=== PATIENT | male | born 1980 | race Hispanic/Latino ===

== ENCOUNTER 2022-08-19 11:23 | Inpatient (IN) | payer SELFPAY ==
[~2022-08-19 11:23] MED LIST: Iopamidol-370 76% 500 ML 1 ML ONE
[2022-08-19 12:13] LABS: Hemoglobin 10.3 g/dL (14.0-18.0); Mean Corpuscular HGB CONC 31.6 g/dL (32.0-36.0); Mean Corpuscular Hemoglobin 39.8 pg (27.0-31.0); Mean Platelet Volume 7.3 fL (7.4-10.4); Platelet Count 145 10x3/uL (130-400); RBC Distribution Width 14.1 % (11.5-14.5); Red Blood Cell (RBC) Count 2.59 mill/uL (4.70-6.10)
[2022-08-19 12:23] LABS: INR-International Normal Ratio 2.4; Prothrombin Time 27.2 sec (12.0-14.7)
[2022-08-19 12:31] LABS: ALT (SGPT) 50 U/L (8-55); AST (SGOT) 87 U/L (5-34); Albumin 2.2 g/dL (3.5-5.0); Alcohol 72 mg/dL (Less than 10); Alkaline Phosphatase 124 U/L (40-110); Anion Gap 12 mmol/L (10-20); BUN (Urea Nitrogen) 7 mg/dL (8.9-20.6); Bilirubin, Total 10.9 mg/dL (0.2-1.2); Calc. Creatinine Clearance 0 mL/min (70-130); Calcium 7.7 mg/dL (7.8-10.44); Carbon Dioxide 19 mmol/L (22-29); Chloride 99 mmol/L (98-107); Estimated GFR 128; Globulin 5.1 g/dL (2.4-3.5); Glucose 111 mg/dL (70-105); Lipase 141 U/L (8-78); Potassium 3.1 mmol/L (3.5-5.1); Protein, Total 7.3 g/dL (6.0-8.3); Sodium 127 mmol/L (136-145)
[2022-08-19 12:37] LABS: Band 1 % (5-11); Lymphocytes 15 % (21-51); MDiff Complete? YES; Macrocytosis SLIGHT = 6-15 cells (100X) (0-5/hpf); Monocytes 5 % (0-10); Neutrophil 79 % (42-75); Platelet Morphology Comment Appears Adequate; Polychromasia SLIGHT = 2-3 cells (100X) (0-2/hpf)
[2022-08-19] MEDS ORDERED: Multivitamins, Adult 10 ML, Folic Acid 1 MG, Thiamine HCl 100 MG in Dextrose 5 %-0.45 %... IV SCH (13:30)
[2022-08-19] MEDS ORDERED: Lorazepam 2 MG/ML VIAL IM PRN (13:32)
[2022-08-19] MEDS ORDERED: Lorazepam 1 MG TAB PO PRN (13:32)
[2022-08-19] MEDS ORDERED: Ondansetron ODT 4 MG TAB PO PRN (13:34)
[2022-08-19] MEDS ORDERED: Ondansetron PF 4 MG/2 ML Vial IVP PRN (13:34)
[2022-08-19] MEDS ORDERED: Electrolyte Replacement Protocol 1 EACH FS SCH (13:45)
[2022-08-19 13:52] LABS: Phosphorus 2.7 mg/dL (2.3-4.7)
[2022-08-19] MEDS ORDERED: Albumin 25% 25 GM/100 ML BOT IVPB SCH (13:58)
[2022-08-19] MEDS ORDERED: Electrolyte Replacement Protocol FS PRN (14:00)
[2022-08-19 14:07] LABS: Magnesium 1.9 mg/dL (1.6-2.6)
[2022-08-19] MEDS ORDERED: Potassium Chloride 20 MEQ TAB PO SCH (15:00)
[2022-08-19] MEDS ORDERED: Furosemide 40 MG/4 ML VIAL SLOW IVP SCH (15:00)
[2022-08-19 15:47] VITALS: BMI 25.8
[2022-08-19] MEDS ORDERED: traMADol HCl 50 MG TAB PO PRN (16:19)
[2022-08-19] MEDS: Lorazepam 1 MG TAB PO SCH ×2 (17:33→23:46)
[2022-08-19] MEDS: Nicotine 14 MG PATCH TD SCH (17:33)
[2022-08-19 17:56] LABS: Amphetamine Not Detected (NotDetected); Barbiturates Screen Not Detected (NotDetected); Benzodiazepine Screen Not Detected (NotDetected); Cocaine Metabolite Screen Not Detected (NotDetected); Methadone Not Detected (NotDetected); Methamphetamine Not Detected (NotDetected); Opiate Screen Not Detected (NotDetected); Oxycodone Screen Not Detected (NotDetected); Phencyclidine (PCP) Not Detected (NotDetected); THC/Cannabinoid Screen Not Detected (NotDetected); Tricyclic Screen Not Detected (NotDetected)
[2022-08-19] MEDS ORDERED: Metoprolol Tartrate 5 MG/5 ML VIAL IVP ONE (18:29)
[2022-08-19] MEDS ORDERED: Atenolol 50 MG TAB PO SCH (18:37)
[2022-08-19] MEDS: cefTRIAXone\\ROCEPHIN 2 GM in Sodium Chloride 0.9% 100 ML IVPB SCH (20:29)
[2022-08-19] MEDS ORDERED: Magnesium 2 GM/50 ML(in water) 2 GM in Premix Bag 1 BAG IVPB SCH (21:30)
[2022-08-20] MEDS: Lorazepam 1 MG TAB PO SCH ×2 (05:29→12:44)
[2022-08-20 06:26] LABS: Hemoglobin 10.6 g/dL (14.0-18.0); Mean Corpuscular HGB CONC 32.2 g/dL (32.0-36.0); Mean Corpuscular Hemoglobin 40.1 pg (27.0-31.0); Mean Platelet Volume 8.1 fL (7.4-10.4); Platelet Count 88 10x3/uL (130-400); Red Blood Cell (RBC) Count 2.63 mill/uL (4.70-6.10); White Blood Cell (WBC) Count 8.9 10x3/uL (4.8-10.8)
[2022-08-20 06:36] LABS: ALT (SGPT) 51 U/L (8-55); AST (SGOT) 88 U/L (5-34); Albumin 2.3 g/dL (3.5-5.0); Alkaline Phosphatase 115 U/L (40-110); Anion Gap 8 mmol/L (10-20); BUN (Urea Nitrogen) 6 mg/dL (8.9-20.6); Bilirubin, Total 10.3 mg/dL (0.2-1.2); Calc. Creatinine Clearance 195 mL/min (70-130); Calcium 7.8 mg/dL (7.8-10.44); Carbon Dioxide 23 mmol/L (22-29); Chloride 98 mmol/L (98-107); Estimated GFR 127; Glucose 81 mg/dL (70-105); Protein, Total 7.3 g/dL (6.0-8.3); Sodium 126 mmol/L (136-145)
[2022-08-20 06:53] LABS: Ferritin 204.06 ng/mL (22-322)
[2022-08-20 07:07] LABS: HBCM Index 0.75 S/CO (0-0.79); HBSAg Index 0.33 S/CO (0-0.99); Hep A IgM AB Non-Reactive (NonReactive); Hep B Surf Ag Non-Reactive S/CO (NonReactive); Hep C IgG Ab Non-Reactive (NonReactive); Hep C Index 0.16 S/CO (0-0.79); Hepatitis B Core IgM Abs Non-Reactive (NonReactive)
[2022-08-20 07:12] LABS: Hep B Surf AB Reactive (NonReactive)
[2022-08-20 07:54] LABS: Band 1 % (5-11); Lymphocytes 18 % (21-51); MDiff Complete? YES; Monocytes 5 % (0-10); Neutrophil 76 % (42-75); Platelet Morphology Comment Appears Decreased; Polychromasia SLIGHT = 2-3 cells (100X) (0-2/hpf)
[2022-08-20] MEDS ORDERED: Magnesium 2 GM/50 ML(in water) 2 GM in Premix Bag 1 BAG IVPB SCH (08:00)
[2022-08-20] MEDS: Potassium Chloride 20 MEQ in Premix Bag 1 BAG IVPB SCH ×4 (08:49→22:00)
[2022-08-20] MEDS: Folic Acid 1 MG TAB PO SCH (08:50)
[2022-08-20] MEDS: Cyanocobalamin (Vitamin B-12) 1,000 MCG TAB PO SCH (08:50)
[2022-08-20] MEDS: Multivit, Therapeutic 1 TAB PO SCH (08:50)
[2022-08-20] MEDS: Atenolol 50 MG TAB PO SCH (08:50)
[2022-08-20] MEDS ORDERED: Furosemide 40 MG/4 ML VIAL SLOW IVP SCH (09:00)
[2022-08-20 09:04] LABS: INR-International Normal Ratio 2.4; Prothrombin Time 27.4 sec (12.0-14.7)
[2022-08-20 09:05] LABS: PTT 50.2 sec (22.9-36.1)
[2022-08-20 14:03] LABS: ALT (SGPT) 51 U/L (8-55); AST (SGOT) 92 U/L (5-34); Albumin 2.3 g/dL (3.5-5.0); Alkaline Phosphatase 113 U/L (40-110); Anion Gap 11 mmol/L (10-20); BUN (Urea Nitrogen) 7 mg/dL (8.9-20.6); Bilirubin, Total 11.7 mg/dL (0.2-1.2); Calc. Creatinine Clearance 185 mL/min (70-130); Calcium 7.8 mg/dL (7.8-10.44); Carbon Dioxide 21 mmol/L (22-29); Chloride 97 mmol/L (98-107); Estimated GFR 125; Globulin 5.4 g/dL (2.4-3.5); Glucose 77 mg/dL (70-105); Potassium 3.1 mmol/L (3.5-5.1); Protein, Total 7.7 g/dL (6.0-8.3); Sodium 126 mmol/L (136-145)
[2022-08-20] MEDS ORDERED: Potassium Chloride 20 MEQ TAB PO SCH (15:15)
[2022-08-20] MEDS ORDERED: Spironolactone 25 MG TAB PO SCH (15:15)
[2022-08-20] MEDS ORDERED: Potassium Chloride 20 MEQ in Premix Bag 1 BAG IVPB SCH (15:15)
[2022-08-20] MEDS ORDERED: Potassium Bicarbonate/Cit Ac 20 MEQ TAB PO SCH (16:15)
[2022-08-20] MEDS: Nicotine 14 MG PATCH TD SCH (17:21)
[2022-08-20 17:28] LABS: RBC Count-Automated (BF) 2174 /cu.mm; WBC/Nucleated-Auto (BF) 24 /cu.mm
[2022-08-20 17:33] LABS: BF Color Yellow; Body Fluid Source Ascites Body Fluid; Clarity Hazy (Clear); Tube # EDTA
[2022-08-20 19:15] LABS: BF Segmented Neutrophils 22 %; Cell Count Non Hematic 71 %; Lymphocytes 7 %
[2022-08-20] MEDS: cefTRIAXone\\ROCEPHIN 2 GM in Sodium Chloride 0.9% 100 ML IVPB SCH (20:01)
[2022-08-20] MEDS: Furosemide 40 MG/4 ML VIAL SLOW IVP SCH (20:02)
[2022-08-21 06:09] LABS: #Eosinphils 0.1 thou/uL (0.0-0.7); #Lymphocytes 1.9 thou/uL (1.20-3.40); #Monocytes 1.3 thou/uL (0.11-0.59); #Neutrophils 6.7 thou/uL (1.40-6.50); %Basophils 0.1 % (0.0-1.0); %Eosinophils 0.5 % (0.0-10.0); %Lymphocytes 19.4 % (21.0-51.0); %Monocytes 13.2 % (0.0-10.0); %Neutrophils 66.8 % (42.0-75.0); Hemoglobin 11.2 g/dL (14.0-18.0); Mean Corpuscular HGB CONC 31.9 g/dL (32.0-36.0); Mean Corpuscular Hemoglobin 39.7 pg (27.0-31.0); Platelet Count 96 10x3/uL (130-400); Red Blood Cell (RBC) Count 2.82 mill/uL (4.70-6.10)
[2022-08-21 06:34] LABS: ALT (SGPT) 48 U/L (8-55); AST (SGOT) 85 U/L (5-34); Albumin 2.3 g/dL (3.5-5.0); Alkaline Phosphatase 114 U/L (40-110); Anion Gap 13 mmol/L (10-20); BUN (Urea Nitrogen) 11 mg/dL (8.9-20.6); Bilirubin, Total 11.3 mg/dL (0.2-1.2); Calc. Creatinine Clearance 171 mL/min (70-130); Carbon Dioxide 22 mmol/L (22-29); Chloride 97 mmol/L (98-107); Estimated GFR 122; Globulin 5.2 g/dL (2.4-3.5); Glucose 89 mg/dL (70-105); Potassium 3.7 mmol/L (3.5-5.1); Protein, Total 7.5 g/dL (6.0-8.3); Sodium 128 mmol/L (136-145)
[2022-08-21] MEDS ORDERED: Potassium Bicarbonate/Cit Ac 20 MEQ TAB PO SCH (09:00)
[2022-08-21] MEDS: Multivit, Therapeutic 1 TAB PO SCH (09:07)
[2022-08-21] MEDS: Folic Acid 1 MG TAB PO SCH (09:07)
[2022-08-21] MEDS: Spironolactone 25 MG TAB PO SCH (09:07)
[2022-08-21] MEDS: Cyanocobalamin (Vitamin B-12) 1,000 MCG TAB PO SCH (09:07)
[2022-08-21] MEDS: Furosemide 40 MG/4 ML VIAL SLOW IVP SCH ×2 (09:08→20:59)
[2022-08-21] MEDS ORDERED: prednisoLONE 15 MG/5 ML UDCUP PO SCH (11:00)
[2022-08-21] MEDS: Atenolol 50 MG TAB PO SCH (11:44)
[2022-08-21 17:11] LABS: Alpha-1-Antitrypsin 74 mg/dL (101-187)
[2022-08-21] MEDS: Nicotine 14 MG PATCH TD SCH (19:00)
[2022-08-21] MEDS: cefTRIAXone\\ROCEPHIN 2 GM in Sodium Chloride 0.9% 100 ML IVPB SCH (20:58)
[2022-08-22 06:29] LABS: #Lymphocytes 1.5 thou/uL (1.20-3.40); #Monocytes 1.5 thou/uL (0.11-0.59); %Basophils 0.1 % (0.0-1.0); %Eosinophils 0.1 % (0.0-10.0); %Lymphocytes 13.9 % (21.0-51.0); %Monocytes 13.7 % (0.0-10.0); %Neutrophils 72.2 % (42.0-75.0); Hemoglobin 10.2 g/dL (14.0-18.0); Mean Corpuscular HGB CONC 32.2 g/dL (32.0-36.0); Mean Corpuscular Hemoglobin 40.2 pg (27.0-31.0); Mean Platelet Volume 7.8 fL (7.4-10.4); Platelet Count 116 10x3/uL (130-400); RBC Distribution Width 13.9 % (11.5-14.5); Red Blood Cell (RBC) Count 2.54 mill/uL (4.70-6.10)
[2022-08-22 06:53] LABS: ALT (SGPT) 48 U/L (8-55); AST (SGOT) 84 U/L (5-34); Albumin 2.1 g/dL (3.5-5.0); Alkaline Phosphatase 135 U/L (40-110); Anion Gap 12 mmol/L (10-20); BUN (Urea Nitrogen) 11 mg/dL (8.9-20.6); Calc. Creatinine Clearance 171 mL/min (70-130); Calcium 7.9 mg/dL (7.8-10.44); Carbon Dioxide 23 mmol/L (22-29); Chloride 96 mmol/L (98-107); Estimated GFR 122; Glucose 107 mg/dL (70-105); Potassium 3.6 mmol/L (3.5-5.1); Protein, Total 7.1 g/dL (6.0-8.3); Sodium 127 mmol/L (136-145)
[2022-08-22] MEDS: Spironolactone 25 MG TAB PO SCH (08:17)
[2022-08-22] MEDS: Cyanocobalamin (Vitamin B-12) 1,000 MCG TAB PO SCH (08:17)
[2022-08-22] MEDS: Atenolol 50 MG TAB PO SCH (08:17)
[2022-08-22] MEDS: Furosemide 40 MG/4 ML VIAL SLOW IVP SCH (08:18)
[2022-08-22] MEDS: Multivit, Therapeutic 1 TAB PO SCH (08:18)
[2022-08-22] MEDS: Folic Acid 1 MG TAB PO SCH (08:18)
[2022-08-22] MEDS ORDERED: Thiamine 100 MG TAB PO SCH (09:00)
[2022-08-22] MEDS ORDERED: prednisoLONE 15 MG/5 ML UDCUP PO SCH (09:00)
[2022-08-22 11:37] LABS: Smooth Muscle Total ABS 13 Units (0-19)
[2022-08-22 12:50] VITALS: BP 117/79; TEMP 98.2
[2022-08-24 16:01] LABS: ANA Symphony (Qualitative) Equivocal: See Note (Negative); EliA Vaculitis New Method **** NEW METHOD ****; Mitochondrial Ab 2.9 U/mL (<4 Negative); dsDNA IgG Antibody 2.3 IU/mL (<10 Negative)
== END 2022-08-22 11:16 | disposition home or self-care (01) | DRG 432 ==
LOC: ERS 11:23 → T4-A 15:13
PROVIDERS: ADMIT Internal Medicine; ATTEND Internal Medicine
PROC: 0W9G3ZX Drainage of Peritoneal Cavity, Percutaneous Approach, Diagnostic (ICD-10-PCS; principal; 2022-08-20)
DX: K70.11 Alcoholic hepatitis with ascites (principal); G92.8 Other toxic encephalopathy; D68.4 Acquired coagulation factor deficiency; E87.1 Hypo-osmolality and hyponatremia; J91.8 Pleural effusion in other conditions classified elsewhere; K76.6 Portal hypertension; Z20.822 Contact with and (suspected) exposure to COVID-19; E88.09 Other disorders of plasma-protein metabolism, not elsewhere classified; E87.6 Hypokalemia; F10.10 Alcohol abuse, uncomplicated; F17.210 Nicotine dependence, cigarettes, uncomplicated; D50.9 Iron deficiency anemia, unspecified; Y90.3 Blood alcohol level of 60-79 mg/100 ml; F32.A Depression, unspecified; I10 Essential (primary) hypertension; K70.31 Alcoholic cirrhosis of liver with ascites; K72.10 Chronic hepatic failure without coma; T42.4X5A Adverse effect of benzodiazepines, initial encounter; Z79.899 Other long term (current) drug therapy; Z90.49 Acquired absence of other specified parts of digestive tract
CPT/HCPCS: 36415; 49083; 74177; 80053; 80306; 80307; 82103; 82105; 82140; 82728; 83516; 83690; 83735; 84100; 85025; 85060; 85610; 85730; 86015; 86038; 86225; 86705; 86706; 86708; 86709; 86803; 87070; 87205; 87340; 89051; 93005; 93010; 94760; 96360; J0696; J1940; J3411; J3475; J3480; J3490; J7042; J7510; Q9967; U0003; U0005

== ENCOUNTER 2022-09-05 17:33 | Inpatient (IN) | payer SELFPAY ==
[2022-09-05 18:42] LABS: #Lymphocytes 1.2 thou/uL (1.20-3.40); #Monocytes 0.9 thou/uL (0.11-0.59); #Neutrophils 8.1 thou/uL (1.40-6.50); %Eosinophils 0.2 % (0.0-10.0); %Lymphocytes 12.2 % (21.0-51.0); %Monocytes 8.5 % (0.0-10.0); %Neutrophils 79.1 % (42.0-75.0); Hemoglobin 12.9 g/dL (14.0-18.0); Mean Corpuscular HGB CONC 31.7 g/dL (32.0-36.0); Mean Corpuscular Hemoglobin 37.2 pg (27.0-31.0); Mean Platelet Volume 8.4 fL (7.4-10.4); Platelet Count 84 10x3/uL (130-400); RBC Distribution Width 14.5 % (11.5-14.5); Red Blood Cell (RBC) Count 3.47 mill/uL (4.70-6.10); White Blood Cell (WBC) Count 10.2 10x3/uL (4.8-10.8)
[2022-09-05] MEDS ORDERED: Ondansetron PF 4 MG/2 ML Vial ONE (18:47)
[2022-09-05] MEDS ORDERED: Acetaminophen 500 MG TAB ONE (18:47)
[2022-09-05 18:51] LABS: INR-International Normal Ratio 2.5
[2022-09-05 19:56] LABS: Albumin 2.4 g/dL (3.5-5.0)
[2022-09-05 19:57] LABS: Chloride 90 mmol/L (98-107); Potassium 3.6 mmol/L (3.5-5.1); Sodium 127 mmol/L (136-145)
[2022-09-05 19:58] LABS: Calcium 8.5 mg/dL (7.8-10.44); Glucose 83 mg/dL (70-105)
[2022-09-05 19:59] LABS: Globulin 5.5 g/dL (2.4-3.5); Protein, Total 7.9 g/dL (6.0-8.3)
[2022-09-05 20:00] LABS: Anion Gap 11 mmol/L (10-20); Bilirubin, Total 12.4 mg/dL (0.2-1.2); Carbon Dioxide 30 mmol/L (22-29)
[2022-09-05 20:01] LABS: Alkaline Phosphatase 134 U/L (40-110)
[2022-09-05 20:02] LABS: Calc. Creatinine Clearance 0 mL/min (70-130); Estimated GFR 118
[2022-09-05 20:03] LABS: BUN (Urea Nitrogen) 18 mg/dL (8.9-20.6)
[2022-09-05 20:04] LABS: ALT (SGPT) 69 U/L (8-55); AST (SGOT) 112 U/L (5-34); Lipase 171 U/L (8-78)
[2022-09-05 20:06] LABS: Bilirubin Negative (Negative); Blood, Urine Negative (Negative); Clarity Turbid (Clear); Glucose, Urine (Dipstick) Normal (Negative); Ketone, Urine Negative (Negative); Leukocyte Negative Leu/uL (Negative); Nitrite Negative (Negative); Protein, Urine (Dipstick) Negative (Neg-Trace); Specific Gravity, Urine 1.012 (1.002-1.036)
[2022-09-05 22:53] LABS: RBC Count-Automated (BF) 83 /cu.mm; WBC/Nucleated-Auto (BF) 47 /cu.mm
[2022-09-05 23:07] LABS: BF Color Yellow; Body Fluid Source Ascites Body Fluid; Clarity Clear (Clear); Tube # 1
[2022-09-05 23:48] LABS: BF Segmented Neutrophils 24 %; Cell Count Non Hematic 62 %; Lymphocytes 14 %
[2022-09-06] MEDS ORDERED: Furosemide 40 MG TAB PO SCH (07:30)
[2022-09-06] MEDS ORDERED: prednisoLONE 15 MG/5 ML UDCUP PO SCH (08:00)
[2022-09-06] MEDS ORDERED: Multivit, Therapeutic 1 TAB PO SCH (09:00)
[2022-09-06] MEDS ORDERED: Thiamine 100 MG TAB PO SCH (09:00)
[2022-09-06] MEDS ORDERED: Folic Acid 1 MG TAB PO SCH (09:00)
[2022-09-06] MEDS ORDERED: Atenolol 50 MG TAB PO SCH (09:00)
[2022-09-06] MEDS ORDERED: Spironolactone 100 MG TAB PO SCH (09:00)
[2022-09-06] MEDS ORDERED: Nicotine 14 MG PATCH TD SCH (18:00)
== END 2022-09-06 01:24 | disposition left against medical advice (07) | DRG 433 ==
LOC: ERS 17:33 → ERHOLD 21:00
PROVIDERS: ADMIT Student in an Organized Health Care Education/Training Program; ATTEND Student in an Organized Health Care Education/Training Program
DX: K70.31 Alcoholic cirrhosis of liver with ascites (principal); J90 Pleural effusion, not elsewhere classified; K70.10 Alcoholic hepatitis without ascites; F41.9 Anxiety disorder, unspecified; F32.A Depression, unspecified; F17.210 Nicotine dependence, cigarettes, uncomplicated; K72.90 Hepatic failure, unspecified without coma; Z53.29 Procedure and treatment not carried out because of patient's decision for other reasons
CPT/HCPCS: 36415; 49083; 71045; 80053; 80307; 81003; 83690; 84484; 85025; 85060; 85610; 87070; 87205; 89051; 93005; 94760; 96374; J2405

== ENCOUNTER 2022-09-10 14:17 | Inpatient (IN) | payer SELFPAY ==
[2022-09-10] MEDS ORDERED: Pantoprazole 40 MG VIAL ONE (15:05)
[2022-09-10 15:08] LABS: #Lymphocytes 0.7 thou/uL (1.20-3.40); #Monocytes 0.6 thou/uL (0.11-0.59); #Neutrophils 7.2 thou/uL (1.40-6.50); %Eosinophils 0.2 % (0.0-10.0); %Lymphocytes 8.1 % (21.0-51.0); %Monocytes 6.6 % (0.0-10.0); Hemoglobin 12.2 g/dL (14.0-18.0); Mean Corpuscular HGB CONC 31.9 g/dL (32.0-36.0); Mean Corpuscular Hemoglobin 36.7 pg (27.0-31.0); Mean Platelet Volume 9.5 fL (7.4-10.4); Platelet Count 58 10x3/uL (130-400); RBC Distribution Width 15.1 % (11.5-14.5); Red Blood Cell (RBC) Count 3.32 mill/uL (4.70-6.10); White Blood Cell (WBC) Count 8.5 10x3/uL (4.8-10.8)
[2022-09-10] MEDS ORDERED: Pantoprazole 80 MG, Admixture Fee 1 EACH in Sodium Chloride 0.9% 100 ML IVPB SCH (15:15)
[2022-09-10 15:20] LABS: INR-International Normal Ratio 2.2; Prothrombin Time 25.6 sec (12.0-14.7)
[2022-09-10 15:21] LABS: PTT 47.1 sec (22.9-36.1)
[2022-09-10 15:28] LABS: ALT (SGPT) 66 U/L (8-55); AST (SGOT) 94 U/L (5-34); Albumin 2.2 g/dL (3.5-5.0); Alkaline Phosphatase 137 U/L (40-110); Anion Gap 12 mmol/L (10-20); BUN (Urea Nitrogen) 21 mg/dL (8.9-20.6); Bilirubin, Total 9.4 mg/dL (0.2-1.2); Calc. Creatinine Clearance 0 mL/min (70-130); Calcium 8.3 mg/dL (7.8-10.44); Carbon Dioxide 28 mmol/L (22-29); Chloride 87 mmol/L (98-107); Estimated GFR 112; Globulin 5.3 g/dL (2.4-3.5); Glucose 91 mg/dL (70-105); Lipase 120 U/L (8-78); Potassium 3.2 mmol/L (3.5-5.1); Protein, Total 7.5 g/dL (6.0-8.3); Sodium 124 mmol/L (136-145)
[2022-09-10] MEDS ORDERED: Ondansetron PF 4 MG/2 ML Vial IVP PRN (17:41)
[2022-09-10] MEDS ORDERED: Ondansetron ODT 4 MG TAB PO PRN (17:41)
[2022-09-10] MEDS ORDERED: Acetaminophen 500 MG TAB PO PRN (17:41)
[2022-09-10] MEDS ORDERED: Phytonadione 10 MG/ML AMP PO SCH (17:45)
[2022-09-10 18:22] VITALS: BMI 23.6
[2022-09-10] MEDS ORDERED: Albumin 25% 25 GM/100 ML BOT IVPB SCH ×2 (18:45→23:59)
[2022-09-10] MEDS: Sodium Chloride 0.9% 1,000 ML IV SCH (18:45)
[2022-09-10] MEDS: cefTRIAXone\\ROCEPHIN 1 GM in Sodium Chloride 0.9% 100 ML IVPB SCH (21:30)
[2022-09-10] MEDS: Pantoprazole 40 MG VIAL IVP SCH (21:30)
[2022-09-11] MEDS: Albumin 25% 25 GM/100 ML BOT IVPB SCH ×4 (04:37→20:33)
[2022-09-11] MEDS: Sodium Chloride 0.9% 1,000 ML IV SCH ×2 (04:47→20:43)
[2022-09-11 05:22] LABS: #Monocytes 0.9 thou/uL (0.11-0.59); #Neutrophils 7.3 thou/uL (1.40-6.50); %Basophils 0.4 % (0.0-1.0); %Eosinophils 0.2 % (0.0-10.0); %Lymphocytes 10.6 % (21.0-51.0); %Monocytes 9.8 % (0.0-10.0); %Neutrophils 78.9 % (42.0-75.0); Hemoglobin 10.3 g/dL (14.0-18.0); Mean Corpuscular HGB CONC 31.3 g/dL (32.0-36.0); Mean Corpuscular Hemoglobin 36.1 pg (27.0-31.0); Mean Platelet Volume 8.3 fL (7.4-10.4); Platelet Count 58 10x3/uL (130-400); Red Blood Cell (RBC) Count 2.86 mill/uL (4.70-6.10); White Blood Cell (WBC) Count 9.2 10x3/uL (4.8-10.8)
[2022-09-11 05:42] LABS: Lipase 135 U/L (8-78); Phosphorus 2.9 mg/dL (2.3-4.7)
[2022-09-11 05:44] LABS: ALT (SGPT) 57 U/L (8-55); AST (SGOT) 76 U/L (5-34); Albumin 2.4 g/dL (3.5-5.0); Alkaline Phosphatase 93 U/L (40-110); Anion Gap 11 mmol/L (10-20); BUN (Urea Nitrogen) 20 mg/dL (8.9-20.6); Bilirubin, Total 9.3 mg/dL (0.2-1.2); Calc. Creatinine Clearance 141 mL/min (70-130); Calcium 8.1 mg/dL (7.8-10.44); Carbon Dioxide 29 mmol/L (22-29); Chloride 89 mmol/L (98-107); Estimated GFR 118; Globulin 4.2 g/dL (2.4-3.5); Glucose 76 mg/dL (70-105); Magnesium 1.6 mg/dL (1.6-2.6); Protein, Total 6.6 g/dL (6.0-8.3); Sodium 126 mmol/L (136-145)
[2022-09-11] MEDS: Thiamine 100 MG TAB PO SCH (09:05)
[2022-09-11] MEDS: Potassium Chloride 20 MEQ TAB PO SCH ×3 (09:05→18:22)
[2022-09-11] MEDS: Folic Acid 1 MG TAB PO SCH (09:05)
[2022-09-11] MEDS: Multivit, Therapeutic 1 TAB PO SCH (09:05)
[2022-09-11] MEDS: predniSONE 50 MG TAB PO SCH (09:05)
[2022-09-11] MEDS: Atenolol 50 MG TAB PO SCH (09:06)
[2022-09-11] MEDS: Spironolactone 100 MG TAB PO SCH (09:07)
[2022-09-11] MEDS: Pantoprazole 40 MG VIAL IVP SCH ×2 (09:48→20:32)
[2022-09-11] MEDS ORDERED: GoLYTELY 4,000 ml Bottle PO SCH (15:30)
[2022-09-11] MEDS: cefTRIAXone\\ROCEPHIN 1 GM in Sodium Chloride 0.9% 100 ML IVPB SCH (18:26)
[2022-09-12] MEDS ORDERED: Sodium Chloride 0.65% Nasal 44 ML BOT EA NARE PRN (00:12)
[2022-09-12] MEDS: Pantoprazole 40 MG VIAL IVP SCH ×2 (08:27→21:30)
[2022-09-12] MEDS: Folic Acid 1 MG TAB PO SCH (08:27)
[2022-09-12] MEDS: Potassium Chloride 20 MEQ TAB PO SCH (08:27)
[2022-09-12] MEDS: Multivit, Therapeutic 1 TAB PO SCH (08:27)
[2022-09-12] MEDS: Atenolol 50 MG TAB PO SCH (08:27)
[2022-09-12] MEDS: predniSONE 50 MG TAB PO SCH (08:27)
[2022-09-12] MEDS: Thiamine 100 MG TAB PO SCH (08:28)
[2022-09-12] MEDS: Spironolactone 100 MG TAB PO SCH (08:28)
[2022-09-12] MEDS: Sodium Chloride 0.9% 1,000 ML IV SCH ×2 (08:29→16:00)
[2022-09-12] MEDS ORDERED: PROPOFOL 200 MG/20 ML VIAL ONE (11:55)
[2022-09-12] MEDS ORDERED: Succinylcholine Chloride 100 MG/5 ML SYRINGE FS ONE (11:55)
[2022-09-12] MEDS ORDERED: Rocuronium Bromide 10 MG/ML (10ML VIAL) ONE (11:55)
[2022-09-12] MEDS ORDERED: Oxymetazoline HCl 0.05% (30 ML BOT) ONE (12:20)
[2022-09-12] MEDS ORDERED: Midazolam HCl 2 mg/2 ml Vial ONE (12:32)
[2022-09-12 13:23] LABS: Actual Bicarbonate (HCO3a) 31.3 mEq/L (22-28); Base Excess (BEa) 8.3 mEq/L (-2.0 to +3.0); CO2 Tension 37.1 mmHg (35.0-45.0); Carboxyhemoglobin (COHb) 1.5 gm% (0.0-3.0); Hemoglobin (Hb) 10.9 g/dL (14.0-18.0); pH, Arterial 7.54 (7.35-7.45)
[2022-09-12 13:25] LABS: ALV-art Gradient 329.125 mmHg (0-20); O2 Tension (PaO2), arterial 52.3 mmHg (80.0-100.0); Puncture Site RRA
[2022-09-12 13:40] LABS: #Monocytes 0.6 thou/uL (0.11-0.59); #Neutrophils 7.5 thou/uL (1.40-6.50); %Eosinophils 0.5 % (0.0-10.0); %Lymphocytes 10.8 % (21.0-51.0); %Monocytes 6.6 % (0.0-10.0); %Neutrophils 82.1 % (42.0-75.0); Mean Corpuscular HGB CONC 32.8 g/dL (32.0-36.0); Mean Corpuscular Hemoglobin 38.3 pg (27.0-31.0); Mean Platelet Volume 8.4 fL (7.4-10.4); Platelet Count 53 10x3/uL (130-400); RBC Distribution Width 15.2 % (11.5-14.5); Red Blood Cell (RBC) Count 2.62 mill/uL (4.70-6.10); White Blood Cell (WBC) Count 9.1 10x3/uL (4.8-10.8)
[2022-09-12 13:51] LABS: Anion Gap 14 mmol/L (10-20); BUN (Urea Nitrogen) 11 mg/dL (8.9-20.6); Calc. Creatinine Clearance 178 mL/min (70-130); Calcium 8.4 mg/dL (7.8-10.44); Carbon Dioxide 24 mmol/L (22-29); Chloride 94 mmol/L (98-107); Estimated GFR 127; Glucose 80 mg/dL (70-105); Potassium 3.1 mmol/L (3.5-5.1); Sodium 129 mmol/L (136-145)
[2022-09-12] MEDS ORDERED: Acetaminophen 325 MG/10.15 ML UDCUP PO PRN (13:57)
[2022-09-12] MEDS ORDERED: FENTANYL 500 MCG/10 ML VIAL 2,000 MCG in Sodium Chloride 0.9% 60 ML IV PRN (14:02)
[2022-09-12] MEDS ORDERED: Dexmedetomidine In 0.9 % NaCl 100 ML IVPB SCH (14:15)
[2022-09-12] MEDS ORDERED: Midazolam HCl 2 mg/2 ml Vial SLOW IVP PRN ×2 (14:17→14:19)
[2022-09-12 14:22] LABS: Magnesium 1.5 mg/dL (1.6-2.6)
[2022-09-12] MEDS ORDERED: Propofol 1,000 MG/100 ML VIAL IV PRN ×2 (14:30)
[2022-09-12] MEDS ORDERED: Morphine 4 MG/ML VIAL SLOW IVP PRN ×2 (14:30)
[2022-09-12] MEDS ORDERED: DISCONTINUE PREVIOUS NARCOTIC PAIN MEDICATIONS AND BENZODIAZEPINES FS SCH ×2 (14:30)
[2022-09-12] MEDS ORDERED: Propofol BOLUS 1,000 MG/100 ML VIAL IV PRN ×2 (14:30)
[2022-09-12] MEDS ORDERED: Fentanyl CADD 100 ML IV SCH (14:30)
[2022-09-12] MEDS: Octreotide Acetate 1,250 MCG in Sodium Chloride 0.9% 250 ML 250 ML IVPB SCH (14:43)
[2022-09-12] MEDS ORDERED: Magnesium 2 GM/50 ML(in water) 2 GM in Premix Bag 1 BAG IVPB SCH (15:30)
[2022-09-12] MEDS ORDERED: Electrolyte Replacement Protocol FS SCH (15:30)
[2022-09-12] MEDS: Potassium Chloride 10 MEQ in Premix Bag 1 BAG IVPB SCH ×2 (17:33→21:33)
[2022-09-12] MEDS: cefTRIAXone\\ROCEPHIN 1 GM in Sodium Chloride 0.9% 100 ML IVPB SCH (18:45)
[2022-09-12 19:52] LABS: #Lymphocytes 1.1 thou/uL (1.20-3.40); #Monocytes 0.7 thou/uL (0.11-0.59); #Neutrophils 8.3 thou/uL (1.40-6.50); %Basophils 0.1 % (0.0-1.0); %Eosinophils 0.4 % (0.0-10.0); %Lymphocytes 11.2 % (21.0-51.0); %Monocytes 6.6 % (0.0-10.0); %Neutrophils 81.7 % (42.0-75.0); Hemoglobin 8.5 g/dL (14.0-18.0); Mean Corpuscular HGB CONC 32.3 g/dL (32.0-36.0); Platelet Count 84 10x3/uL (130-400); Red Blood Cell (RBC) Count 2.29 mill/uL (4.70-6.10); White Blood Cell (WBC) Count 10.1 10x3/uL (4.8-10.8)
[2022-09-12 20:16] LABS: Anion Gap 13 mmol/L (10-20); BUN (Urea Nitrogen) 12 mg/dL (8.9-20.6); Calc. Creatinine Clearance 172 mL/min (70-130); Carbon Dioxide 25 mmol/L (22-29); Chloride 96 mmol/L (98-107); Estimated GFR 126; Glucose 77 mg/dL (70-105); Potassium 3.3 mmol/L (3.5-5.1); Sodium 131 mmol/L (136-145)
[2022-09-13] MEDS: Potassium Chloride 10 MEQ in Premix Bag 1 BAG IVPB SCH (00:35)
[2022-09-13 05:06] LABS: INR-International Normal Ratio 3.2; PTT 57.3 sec (22.9-36.1); Prothrombin Time 34.1 sec (12.0-14.7)
[2022-09-13 05:12] LABS: Hemoglobin 8.1 g/dL (14.0-18.0); Mean Corpuscular HGB CONC 31.8 g/dL (32.0-36.0); Mean Corpuscular Hemoglobin 36.9 pg (27.0-31.0); Mean Platelet Volume 8.9 fL (7.4-10.4); Platelet Count 68 10x3/uL (130-400); RBC Distribution Width 15.2 % (11.5-14.5); Red Blood Cell (RBC) Count 2.19 mill/uL (4.70-6.10)
[2022-09-13 05:20] LABS: Anion Gap 12 mmol/L (10-20); BUN (Urea Nitrogen) 15 mg/dL (8.9-20.6); Calc. Creatinine Clearance 156 mL/min (70-130); Calcium 7.8 mg/dL (7.8-10.44); Carbon Dioxide 26 mmol/L (22-29); Chloride 95 mmol/L (98-107); Estimated GFR 122; Glucose 74 mg/dL (70-105); Potassium 3.6 mmol/L (3.5-5.1); Sodium 129 mmol/L (136-145)
[2022-09-13 05:24] LABS: ALT (SGPT) 35 U/L (8-55); AST (SGOT) 51 U/L (5-34); Albumin 2.4 g/dL (3.5-5.0); Alkaline Phosphatase 63 U/L (40-110); Bilirubin, Direct 3.8 mg/dL (0.1-0.3); Bilirubin, Total 8.6 mg/dL (0.2-1.2)
[2022-09-13] MEDS: Sodium Chloride 0.9% 1,000 ML IV SCH ×3 (05:46→23:39)
[2022-09-13 05:47] LABS: #Lymphocytes 1.4 thou/uL (1.20-3.40); #Monocytes 0.5 thou/uL (0.11-0.59); #Neutrophils 7.1 thou/uL (1.40-6.50); %Basophils 0.1 % (0.0-1.0); %Eosinophils 0.5 % (0.0-10.0); %Lymphocytes 15.8 % (21.0-51.0); %Monocytes 5.1 % (0.0-10.0); %Neutrophils 78.4 % (42.0-75.0); MDiff Complete? YES; Macrocytosis SLIGHT = 6-15 cells (100X) (0-5/hpf); Platelet Morphology Comment Appears Decreased
[2022-09-13] MEDS ORDERED: Magnesium 2 GM/50 ML(in water) 2 GM in Premix Bag 1 BAG IVPB SCH (08:00)
[2022-09-13] MEDS: Pantoprazole 40 MG VIAL IVP SCH ×2 (08:53→21:12)
[2022-09-13] MEDS: Folic Acid 1 MG TAB PO SCH (08:59)
[2022-09-13] MEDS: Atenolol 50 MG TAB PO SCH (08:59)
[2022-09-13] MEDS: Multivit, Therapeutic 1 TAB PO SCH (08:59)
[2022-09-13] MEDS: predniSONE 50 MG TAB PO SCH (09:00)
[2022-09-13] MEDS: Thiamine 100 MG TAB PO SCH (09:00)
[2022-09-13] MEDS ORDERED: Sodium Chloride 0.9% 500 ML IV SCH (11:30)
[2022-09-13 11:57] LABS: #Lymphocytes 1.4 thou/uL (1.20-3.40); #Monocytes 0.6 thou/uL (0.11-0.59); #Neutrophils 6.3 thou/uL (1.40-6.50); %Eosinophils 0.6 % (0.0-10.0); %Lymphocytes 16.4 % (21.0-51.0); Hemoglobin 8.6 g/dL (14.0-18.0); Mean Corpuscular HGB CONC 32.3 g/dL (32.0-36.0); Mean Corpuscular Hemoglobin 37.6 pg (27.0-31.0); Mean Platelet Volume 10.4 fL (7.4-10.4); Platelet Count 68 10x3/uL (130-400); Red Blood Cell (RBC) Count 2.28 mill/uL (4.70-6.10); White Blood Cell (WBC) Count 8.3 10x3/uL (4.8-10.8)
[2022-09-13] MEDS ORDERED: Phytonadione 10 MG in Sodium Chloride 0.9% 50 ML IVPB SCH (12:15)
[2022-09-13] MEDS: Albumin 25% 25 GM/100 ML BOT IVPB SCH ×3 (12:26→23:38)
[2022-09-13] MEDS: cefTRIAXone\\ROCEPHIN 1 GM in Sodium Chloride 0.9% 100 ML IVPB SCH (19:02)
[2022-09-14 04:21] LABS: #Eosinphils 0.1 thou/uL (0.0-0.7); #Lymphocytes 1.9 thou/uL (1.20-3.40); #Monocytes 0.7 thou/uL (0.11-0.59); #Neutrophils 6.6 thou/uL (1.40-6.50); %Basophils 0.1 % (0.0-1.0); %Eosinophils 0.6 % (0.0-10.0); %Lymphocytes 20.7 % (21.0-51.0); %Monocytes 7.1 % (0.0-10.0); %Neutrophils 71.6 % (42.0-75.0); Hemoglobin 7.5 g/dL (14.0-18.0); Mean Corpuscular HGB CONC 31.8 g/dL (32.0-36.0); Mean Corpuscular Hemoglobin 37.2 pg (27.0-31.0); Mean Platelet Volume 9.2 fL (7.4-10.4); Platelet Count 57 10x3/uL (130-400); Red Blood Cell (RBC) Count 2.02 mill/uL (4.70-6.10); White Blood Cell (WBC) Count 9.2 10x3/uL (4.8-10.8)
[2022-09-14 04:34] LABS: ALT (SGPT) 25 U/L (8-55); AST (SGOT) 43 U/L (5-34); Albumin 3.1 g/dL (3.5-5.0); Alkaline Phosphatase 52 U/L (40-110); Anion Gap 14 mmol/L (10-20); BUN (Urea Nitrogen) 21 mg/dL (8.9-20.6); Bilirubin, Total 6.2 mg/dL (0.2-1.2); Calc. Creatinine Clearance 151 mL/min (70-130); Calcium 7.9 mg/dL (7.8-10.44); Carbon Dioxide 24 mmol/L (22-29); Chloride 98 mmol/L (98-107); Estimated GFR 121; Glucose 87 mg/dL (70-105); Magnesium 2.2 mg/dL (1.6-2.6); Potassium 3.6 mmol/L (3.5-5.1); Protein, Total 5.1 g/dL (6.0-8.3); Sodium 132 mmol/L (136-145)
[2022-09-14 04:38] LABS: INR-International Normal Ratio 3.2
[2022-09-14] MEDS: Albumin 25% 25 GM/100 ML BOT IVPB SCH (05:43)
[2022-09-14] MEDS ORDERED: Fentanyl CADD 100 ML ONE (06:15)
[2022-09-14] MEDS: Multivit, Therapeutic 1 TAB PO SCH (07:45)
[2022-09-14] MEDS: Atenolol 50 MG TAB PO SCH ×3 (07:45→10:32)
[2022-09-14] MEDS: predniSONE 50 MG TAB PO SCH (07:45)
[2022-09-14] MEDS: Thiamine 100 MG TAB PO SCH (07:45)
[2022-09-14] MEDS: Folic Acid 1 MG TAB PO SCH (07:45)
[2022-09-14] MEDS: Sodium Chloride 0.9% 1,000 ML IV SCH ×3 (07:49→19:45)
[2022-09-14] MEDS: Pantoprazole 40 MG VIAL IVP SCH ×2 (07:49→20:59)
[2022-09-14] MEDS: cefTRIAXone\\ROCEPHIN 1 GM in Sodium Chloride 0.9% 100 ML IVPB SCH (16:55)
[2022-09-14] MEDS ORDERED: Artificial Tear Sol 15 ML BOT EA EYE PRN (21:54)
[2022-09-14] MEDS ORDERED: traZODone HCl 50 MG TAB PO SCH (22:15)
[2022-09-15] MEDS: Sodium Chloride 0.9% 1,000 ML IV SCH ×2 (06:38→19:50)
[2022-09-15] MEDS: Thiamine 100 MG TAB PO SCH (09:36)
[2022-09-15] MEDS: Spironolactone 100 MG TAB PO SCH (09:36)
[2022-09-15] MEDS: Multivit, Therapeutic 1 TAB PO SCH (09:36)
[2022-09-15] MEDS: Atenolol 50 MG TAB PO SCH (09:36)
[2022-09-15] MEDS: Folic Acid 1 MG TAB PO SCH (09:36)
[2022-09-15] MEDS: Pantoprazole 40 MG VIAL IVP SCH (09:37)
[2022-09-15] MEDS: prednisoLONE 10 MG ODT TAB PO SCH (11:05)
[2022-09-15] MEDS: cefTRIAXone\\ROCEPHIN 1 GM in Sodium Chloride 0.9% 100 ML IVPB SCH (18:37)
[2022-09-15] MEDS: Octreotide Acetate 1,250 MCG in Sodium Chloride 0.9% 250 ML 250 ML IVPB SCH (23:24)
[2022-09-16] MEDS: Sodium Chloride 0.9% 1,000 ML IV SCH ×2 (05:34→20:34)
[2022-09-16 07:33] LABS: ALT (SGPT) 33 U/L (8-55); AST (SGOT) 61 U/L (5-34); Albumin 2.8 g/dL (3.5-5.0); Alkaline Phosphatase 72 U/L (40-110); Anion Gap 13 mmol/L (10-20); BUN (Urea Nitrogen) 12 mg/dL (8.9-20.6); BUN/Creatinine Ratio 18.75; Bilirubin, Direct 3.3 mg/dL (0.1-0.3); Bilirubin, Total 7.6 mg/dL (0.2-1.2); Calc. Creatinine Clearance 156 mL/min (70-130); Calcium 8.3 mg/dL (7.8-10.44); Carbon Dioxide 22 mmol/L (22-29); Chloride 105 mmol/L (98-107); Estimated GFR 122; Glucose 110 mg/dL (70-105); Phosphorus 2.1 mg/dL (2.3-4.7); Potassium 3.8 mmol/L (3.5-5.1); Protein, Total 5.6 g/dL (6.0-8.3); Sodium 136 mmol/L (136-145)
[2022-09-16 07:35] LABS: INR-International Normal Ratio 3.3; Prothrombin Time 35.2 sec (12.0-14.7)
[2022-09-16] MEDS: prednisoLONE 10 MG ODT TAB PO SCH (08:35)
[2022-09-16] MEDS: Thiamine 100 MG TAB PO SCH (08:36)
[2022-09-16] MEDS: Folic Acid 1 MG TAB PO SCH (08:36)
[2022-09-16] MEDS: Multivit, Therapeutic 1 TAB PO SCH (08:36)
[2022-09-16] MEDS: Spironolactone 100 MG TAB PO SCH (08:41)
[2022-09-16] MEDS: Atenolol 50 MG TAB PO SCH (08:41)
[2022-09-16 08:59] LABS: #Lymphocytes 1.3 thou/uL (1.20-3.40); #Monocytes 0.8 thou/uL (0.11-0.59); #Neutrophils 7.2 thou/uL (1.40-6.50); %Basophils 0.2 % (0.0-1.0); %Eosinophils 0.1 % (0.0-10.0); %Lymphocytes 13.7 % (21.0-51.0); %Monocytes 8.4 % (0.0-10.0); %Neutrophils 77.7 % (42.0-75.0); Burr Cells SLIGHT = 2-5 cells (100X) (0-1/hpf); Hemoglobin 9.9 g/dL (14.0-18.0); Hypochromia SLIGHT = 6-15 cells (100X) (0-5/hpf); Lymphocytes 12 % (21-51); MDiff Complete? YES; Macrocytosis SLIGHT = 6-15 cells (100X) (0-5/hpf); Mean Corpuscular HGB CONC 31.8 g/dL (32.0-36.0); Mean Corpuscular Hemoglobin 37.3 pg (27.0-31.0); Mean Platelet Volume 8.1 fL (7.4-10.4); Monocytes 4 % (0-10); Myelocyte 1 % (0-0); Neutrophil 83 % (42-75); Platelet Count 61 10x3/uL (130-400); Platelet Morphology Comment Appears Decreased; Polychromasia SLIGHT = 2-3 cells (100X) (0-2/hpf); Red Blood Cell (RBC) Count 2.66 mill/uL (4.70-6.10); Schistocytes SLIGHT = 2-5 cells (100X) (0-1/hpf); White Blood Cell (WBC) Count 9.2 10x3/uL (4.8-10.8)
[2022-09-16] MEDS: cefTRIAXone\\ROCEPHIN 1 GM in Sodium Chloride 0.9% 100 ML IVPB SCH (17:50)
[2022-09-16] MEDS ORDERED: Octreotide Acetate 1,250 MCG in Sodium Chloride 0.9% 250 ML 250 ML IVPB SCH (22:00)
[2022-09-16] MEDS ORDERED: Propranolol 10 MG TAB PO SCH (22:15)
[2022-09-17 06:44] LABS: #Basophils 0.1 thou/uL (0.0-0.2); #Lymphocytes 1.2 thou/uL (1.20-3.40); #Neutrophils 11.3 thou/uL (1.40-6.50); %Basophils 0.5 % (0.0-1.0); %Eosinophils 0.2 % (0.0-10.0); %Lymphocytes 8.8 % (21.0-51.0); %Monocytes 7.4 % (0.0-10.0); %Neutrophils 83.1 % (42.0-75.0); Hemoglobin 10.4 g/dL (14.0-18.0); Mean Corpuscular HGB CONC 32.2 g/dL (32.0-36.0); Mean Corpuscular Hemoglobin 38.2 pg (27.0-31.0); Mean Platelet Volume 8.1 fL (7.4-10.4); Platelet Count 66 10x3/uL (130-400); RBC Distribution Width 16.3 % (11.5-14.5); Red Blood Cell (RBC) Count 2.73 mill/uL (4.70-6.10); White Blood Cell (WBC) Count 13.5 10x3/uL (4.8-10.8)
[2022-09-17 06:58] LABS: Anion Gap 9 mmol/L (10-20); BUN (Urea Nitrogen) 11 mg/dL (8.9-20.6); Calc. Creatinine Clearance 164 mL/min (70-130); Calcium 8.4 mg/dL (7.8-10.44); Carbon Dioxide 23 mmol/L (22-29); Chloride 107 mmol/L (98-107); Estimated GFR 124; Glucose 80 mg/dL (70-105); Potassium 3.9 mmol/L (3.5-5.1); Sodium 135 mmol/L (136-145)
[2022-09-17] MEDS: Sodium Chloride 0.9% 1,000 ML IV SCH ×2 (06:58→13:48)
[2022-09-17 07:42] VITALS: BP 155/106; TEMP 97.8
[2022-09-17] MEDS: prednisoLONE 10 MG ODT TAB PO SCH (08:31)
[2022-09-17] MEDS: Multivit, Therapeutic 1 TAB PO SCH (08:32)
[2022-09-17] MEDS: Thiamine 100 MG TAB PO SCH (08:32)
[2022-09-17] MEDS: Atenolol 50 MG TAB PO SCH (08:33)
[2022-09-17] MEDS: Spironolactone 100 MG TAB PO SCH (08:33)
[2022-09-17] MEDS: Folic Acid 1 MG TAB PO SCH (08:33)
[2022-09-17] MEDS ORDERED: Propranolol 10 MG TAB PO SCH (09:00)
== END 2022-09-17 16:23 | disposition home or self-care (01) | DRG 432 ==
LOC: ERS 14:17 → MSONC 16:26 → CCU 09-12 12:59 → T4-A 09-15 15:47
PROVIDERS: ADMIT Family Medicine; ATTEND Family Medicine
PROC: 06L38CZ Occlusion of Esophageal Vein with Extraluminal Device, Via Natural or Artificial Opening Endoscopic (ICD-10-PCS; principal; 2022-09-12)
PROC: 0DJD8ZZ Inspection of Lower Intestinal Tract, Via Natural or Artificial Opening Endoscopic (ICD-10-PCS; 2022-09-12)
PROC: 5A1945Z Respiratory Ventilation, 24-96 Consecutive Hours (ICD-10-PCS; 2022-09-12)
DX: K70.31 Alcoholic cirrhosis of liver with ascites (principal); I85.11 Secondary esophageal varices with bleeding; J95.821 Acute postprocedural respiratory failure; E87.1 Hypo-osmolality and hyponatremia; D62 Acute posthemorrhagic anemia; J94.8 Other specified pleural conditions; K76.6 Portal hypertension; K70.11 Alcoholic hepatitis with ascites; K59.00 Constipation, unspecified; E87.6 Hypokalemia; D69.59 Other secondary thrombocytopenia; F10.20 Alcohol dependence, uncomplicated; F17.210 Nicotine dependence, cigarettes, uncomplicated; Z79.52 Long term (current) use of systemic steroids; Z79.899 Other long term (current) drug therapy
CPT/HCPCS: 36415; 36416; 36430; 36600; 71045; 80048; 80053; 80069; 80076; 82140; 82274; 82805; 83690; 83735; 84100; 84443; 85025; 85610; 85730; 86850; 86900; 86901; 93005; 93010; 94002; 94003; 94760; 96374; 96376; C9113; J0696; J2250; J2270; J2354; J2704; J3010; J3430; J3475; J3480; J3490; J7030; J7050; J7512; P9035; P9047; U0003; U0005

== ENCOUNTER 2022-09-28 23:18 | Inpatient (IN) | payer OTHER, SELFPAY ==
[2022-09-29 00:13] LABS: #Lymphocytes 0.5 thou/uL (1.20-3.40); #Monocytes 0.3 thou/uL (0.11-0.59); #Neutrophils 5.9 thou/uL (1.40-6.50); %Monocytes 4.6 % (0.0-10.0); %Neutrophils 88.3 % (42.0-75.0); Hemoglobin 11.8 g/dL (14.0-18.0); Mean Corpuscular HGB CONC 31.2 g/dL (32.0-36.0); Mean Corpuscular Hemoglobin 37.9 pg (27.0-31.0); Platelet Count 89 10x3/uL (130-400); RBC Distribution Width 18.3 % (11.5-14.5); Red Blood Cell (RBC) Count 3.12 mill/uL (4.70-6.10); White Blood Cell (WBC) Count 6.7 10x3/uL (4.8-10.8)
[2022-09-29 00:20] LABS: INR-International Normal Ratio 2.6; Prothrombin Time 29.3 sec (12.0-14.7)
[2022-09-29 00:30] LABS: ALT (SGPT) 70 U/L (8-55); AST (SGOT) 78 U/L (5-34); Acetaminophen Less than 10.0 mcg/mL (10.0-30.0); Albumin 3.1 g/dL (3.5-5.0); Alcohol Less than 10 mg/dL (Less than 10); Alkaline Phosphatase 136 U/L (40-110); Anion Gap 12 mmol/L (10-20); BUN (Urea Nitrogen) 15 mg/dL (8.9-20.6); Bilirubin, Total 11.6 mg/dL (0.2-1.2); CK (CPK) 78 U/L (30-200); Calc. Creatinine Clearance 0 mL/min (70-130); Calcium 8.6 mg/dL (7.8-10.44); Carbon Dioxide 24 mmol/L (22-29); Chloride 101 mmol/L (98-107); Estimated GFR 123; Glucose 95 mg/dL (70-105); Potassium 3.6 mmol/L (3.5-5.1); Protein, Total 7.1 g/dL (6.0-8.3); Salicylate Less than 8.0 mg/dL (15.0-30.0); Sodium 133 mmol/L (136-145)
[2022-09-29 00:55] LABS: CKMB 8.5 ng/mL (0-6.6)
[2022-09-29] MEDS ORDERED: Ondansetron ODT 4 MG TAB PO PRN (03:34)
[2022-09-29] MEDS ORDERED: Ondansetron PF 4 MG/2 ML Vial IVP PRN (03:34)
[2022-09-29] MEDS ORDERED: Acetaminophen 325 MG TAB PO PRN (03:34)
[2022-09-29] MEDS ORDERED: Acetaminophen 650 MG Suppository PR PRN (03:34)
[2022-09-29] MEDS ORDERED: Rifaximin 550 MG TAB PO SCH (03:45)
[2022-09-29] MEDS ORDERED: cefTRIAXone\\ROCEPHIN 1 GM in Sodium Chloride 0.9% 100 ML IVPB SCH (04:00)
[2022-09-29 04:57] LABS: ALT (SGPT) 65 U/L (8-55); AST (SGOT) 82 U/L (5-34); Albumin 2.4 g/dL (3.5-5.0); Alkaline Phosphatase 110 U/L (40-110); Anion Gap 14 mmol/L (10-20); BUN (Urea Nitrogen) 15 mg/dL (8.9-20.6); Bilirubin, Total 10.1 mg/dL (0.2-1.2); Calc. Creatinine Clearance 0 mL/min (70-130); Calcium 8.5 mg/dL (7.8-10.44); Carbon Dioxide 20 mmol/L (22-29); Chloride 102 mmol/L (98-107); Estimated GFR 131; Glucose 88 mg/dL (70-105); Potassium 4.2 mmol/L (3.5-5.1); Protein, Total 6.4 g/dL (6.0-8.3); Sodium 132 mmol/L (136-145)
[2022-09-29 06:01] VITALS: BMI 18.2
[2022-09-29] MEDS ORDERED: Iopamidol 370 76% 100 ML VIAL ONE (09:06)
[2022-09-29] MEDS ORDERED: Folic Acid 1 MG TAB PO SCH ×2 (09:28→09:45)
[2022-09-29] MEDS ORDERED: Furosemide 40 MG TAB PO SCH ×2 (09:28→09:45)
[2022-09-29] MEDS ORDERED: Thiamine 100 MG TAB PO SCH ×2 (09:28→09:45)
[2022-09-29] MEDS ORDERED: Spironolactone 100 MG TAB PO SCH ×2 (09:28→09:45)
[2022-09-29] MEDS ORDERED: Phytonadione 10 MG in Sodium Chloride 0.9% 50 ML IVPB SCH (09:30)
[2022-09-29 16:24] LABS: Bacteria/HPF None Seen HPF (None Seen); Bilirubin 1+ (Negative); Blood, Urine 3+ (Negative); CAUTI Indications for Culture Alt mental st,lethar; Clarity Turbid (Clear); Glucose, Urine (Dipstick) Normal (Negative); Ketone, Urine Negative (Negative); Leukocyte Negative Leu/uL (Negative); Nitrite Negative (Negative); Protein, Urine (Dipstick) Negative (Neg-Trace); RBC/HPF Greater than 50 HPF (0-3); Specific Gravity, Urine 1.026 (1.002-1.036); Squamous Epithelial 0-3 HPF (0-3); WBC/HPF 0-3 HPF (0-3)
[2022-09-29 16:26] LABS: Urine Culture Reflex No No
[2022-09-29] MEDS ORDERED: Vancomycin 1.5 GRAM/300 ML BAG 1.5 GM in Premix Bag 1 BAG IVPB SCH (18:30)
[2022-09-29] MEDS: Albumin 25% 25 GM/100 ML BOT IVPB SCH ×2 (18:37→23:25)
[2022-09-29] MEDS: prednisoLONE 10 MG ODT TAB PO SCH (20:32)
[2022-09-29] MEDS: Nadolol 40 MG TAB PO SCH (20:32)
[2022-09-29] MEDS: Rifaximin 550 MG TAB PO SCH (20:33)
[2022-09-29] MEDS ORDERED: Vancomycin 1 GM in Premix Bag 1 BAG IVPB SCH (21:00)
[2022-09-30 06:02] LABS: INR-International Normal Ratio 2.9; Prothrombin Time 31.5 sec (12.0-14.7)
[2022-09-30 06:11] LABS: ALT (SGPT) 58 U/L (8-55); AST (SGOT) 64 U/L (5-34); Albumin 3.4 g/dL (3.5-5.0); Alkaline Phosphatase 93 U/L (40-110); Anion Gap 14 mmol/L (10-20); BUN (Urea Nitrogen) 15 mg/dL (8.9-20.6); Bilirubin, Total 11.3 mg/dL (0.2-1.2); Calc. Creatinine Clearance 104 mL/min (70-130); Calcium 9.2 mg/dL (7.8-10.44); Carbon Dioxide 22 mmol/L (22-29); Chloride 101 mmol/L (98-107); Estimated GFR 117; Globulin 3.6 g/dL (2.4-3.5); Glucose 118 mg/dL (70-105); Potassium 4.2 mmol/L (3.5-5.1); Sodium 133 mmol/L (136-145)
[2022-09-30 06:32] LABS: #Lymphocytes 0.4 thou/uL (1.20-3.40); #Monocytes 0.4 thou/uL (0.11-0.59); %Eosinophils 0.1 % (0.0-10.0); %Lymphocytes 6.4 % (21.0-51.0); %Monocytes 6.6 % (0.0-10.0); %Neutrophils 86.9 % (42.0-75.0); Hemoglobin 10.9 g/dL (14.0-18.0); MDiff Complete? YES; Macrocytosis MODERATE=16-30 cells (100X) (0-5/hpf); Mean Corpuscular HGB CONC 32.1 g/dL (32.0-36.0); Mean Corpuscular Hemoglobin 39.8 pg (27.0-31.0); Mean Platelet Volume 7.7 fL (7.4-10.4); Platelet Count 90 10x3/uL (130-400); Platelet Morphology Comment Appears Decreased; RBC Distribution Width 18.2 % (11.5-14.5); Red Blood Cell (RBC) Count 2.75 mill/uL (4.70-6.10); White Blood Cell (WBC) Count 5.8 10x3/uL (4.8-10.8)
[2022-09-30] MEDS: Albumin 25% 25 GM/100 ML BOT IVPB SCH ×2 (06:43→12:13)
[2022-09-30] MEDS ORDERED: Spironolactone 100 MG TAB PO SCH (09:00)
[2022-09-30] MEDS: VANCOMYCIN 1.25 GM/250 ML BAG 1.25 GM in Premix Bag 1 BAG IVPB SCH ×2 (09:47→21:02)
[2022-09-30] MEDS: Multivit, Therapeutic 1 TAB PO SCH (09:49)
[2022-09-30] MEDS: Folic Acid 1 MG TAB PO SCH (09:50)
[2022-09-30] MEDS: Furosemide 40 MG TAB PO SCH (09:50)
[2022-09-30] MEDS: Thiamine 100 MG TAB PO SCH (09:50)
[2022-09-30] MEDS: Rifaximin 550 MG TAB PO SCH ×2 (09:51→21:01)
[2022-09-30] MEDS: Spironolactone 100 MG TAB PO SCH (11:30)
[2022-09-30] MEDS: prednisoLONE 10 MG ODT TAB PO SCH (21:00)
[2022-09-30] MEDS: Nadolol 40 MG TAB PO SCH (21:01)
[2022-10-01 07:57] LABS: #Lymphocytes 0.5 thou/uL (1.20-3.40); #Monocytes 0.7 thou/uL (0.11-0.59); #Neutrophils 6.6 thou/uL (1.40-6.50); %Eosinophils 0.1 % (0.0-10.0); %Lymphocytes 5.9 % (21.0-51.0); %Monocytes 8.4 % (0.0-10.0); %Neutrophils 85.6 % (42.0-75.0); Hemoglobin 10.4 g/dL (14.0-18.0); Mean Corpuscular Hemoglobin 40.2 pg (27.0-31.0); Mean Platelet Volume 8.2 fL (7.4-10.4); Platelet Count 84 10x3/uL (130-400); RBC Distribution Width 18.1 % (11.5-14.5); White Blood Cell (WBC) Count 7.7 10x3/uL (4.8-10.8)
[2022-10-01 08:06] LABS: INR-International Normal Ratio 2.9; Prothrombin Time 31.3 sec (12.0-14.7)
[2022-10-01 08:10] LABS: Vancomycin, Trough 16.4 ug/mL
[2022-10-01 08:12] LABS: ALT (SGPT) 51 U/L (8-55); AST (SGOT) 62 U/L (5-34); Albumin 3.4 g/dL (3.5-5.0); Alkaline Phosphatase 125 U/L (40-110); Anion Gap 11 mmol/L (10-20); BUN (Urea Nitrogen) 14 mg/dL (8.9-20.6); Bilirubin, Total 8.7 mg/dL (0.2-1.2); Calc. Creatinine Clearance 130 mL/min (70-130); Calcium 8.6 mg/dL (7.8-10.44); Carbon Dioxide 23 mmol/L (22-29); Chloride 101 mmol/L (98-107); Estimated GFR 125; Glucose 112 mg/dL (70-105); Potassium 3.8 mmol/L (3.5-5.1); Protein, Total 6.4 g/dL (6.0-8.3); Sodium 131 mmol/L (136-145)
[2022-10-01] MEDS: Multivit, Therapeutic 1 TAB PO SCH (08:53)
[2022-10-01] MEDS: Thiamine 100 MG TAB PO SCH (08:53)
[2022-10-01] MEDS: Folic Acid 1 MG TAB PO SCH (08:53)
[2022-10-01] MEDS: Spironolactone 100 MG TAB PO SCH (08:53)
[2022-10-01] MEDS: Furosemide 40 MG TAB PO SCH (08:53)
[2022-10-01] MEDS: Rifaximin 550 MG TAB PO SCH ×2 (08:53→20:34)
[2022-10-01] MEDS: VANCOMYCIN 1.25 GM/250 ML BAG 1.25 GM in Premix Bag 1 BAG IVPB SCH (08:56)
[2022-10-01] MEDS: prednisoLONE 10 MG ODT TAB PO SCH (17:55)
[2022-10-01] MEDS: AMPicillin 1 GM in Sodium Chloride 0.9% 100 ML IVPB SCH (17:56)
[2022-10-01] MEDS: Nadolol 40 MG TAB PO SCH (20:34)
[2022-10-02] MEDS: AMPicillin 1 GM in Sodium Chloride 0.9% 100 ML IVPB SCH ×4 (01:37→17:25)
[2022-10-02 05:10] LABS: #Lymphocytes 0.6 thou/uL (1.20-3.40); #Monocytes 0.8 thou/uL (0.11-0.59); #Neutrophils 7.5 thou/uL (1.40-6.50); %Basophils 0.1 % (0.0-1.0); %Eosinophils 0.2 % (0.0-10.0); %Lymphocytes 6.6 % (21.0-51.0); %Monocytes 8.4 % (0.0-10.0); %Neutrophils 84.7 % (42.0-75.0); Hemoglobin 10.2 g/dL (14.0-18.0); Mean Corpuscular HGB CONC 31.1 g/dL (32.0-36.0); Mean Corpuscular Hemoglobin 38.7 pg (27.0-31.0); Mean Platelet Volume 8.1 fL (7.4-10.4); Platelet Count 82 10x3/uL (130-400); RBC Distribution Width 17.9 % (11.5-14.5); Red Blood Cell (RBC) Count 2.63 mill/uL (4.70-6.10); White Blood Cell (WBC) Count 8.9 10x3/uL (4.8-10.8)
[2022-10-02 05:13] LABS: INR-International Normal Ratio 3.1; Prothrombin Time 33.2 sec (12.0-14.7)
[2022-10-02 05:25] LABS: Anion Gap 10 mmol/L (10-20); BUN (Urea Nitrogen) 14 mg/dL (8.9-20.6); Calc. Creatinine Clearance 137 mL/min (70-130); Carbon Dioxide 23 mmol/L (22-29); Chloride 99 mmol/L (98-107); Potassium 3.7 mmol/L (3.5-5.1); Sodium 128 mmol/L (136-145)
[2022-10-02 05:26] LABS: ALT (SGPT) 54 U/L (8-55); AST (SGOT) 61 U/L (5-34); Albumin 3.1 g/dL (3.5-5.0); Alkaline Phosphatase 115 U/L (40-110); Bilirubin, Total 8.1 mg/dL (0.2-1.2); Calcium 8.4 mg/dL (7.8-10.44); Estimated GFR 127; Globulin 2.9 g/dL (2.4-3.5); Glucose 115 mg/dL (70-105)
[2022-10-02] MEDS: Spironolactone 100 MG TAB PO SCH (08:15)
[2022-10-02] MEDS: Folic Acid 1 MG TAB PO SCH (08:15)
[2022-10-02] MEDS: Multivit, Therapeutic 1 TAB PO SCH (08:16)
[2022-10-02] MEDS: Rifaximin 550 MG TAB PO SCH ×2 (08:16→20:47)
[2022-10-02] MEDS: Thiamine 100 MG TAB PO SCH (08:16)
[2022-10-02] MEDS: Furosemide 40 MG TAB PO SCH (08:16)
[2022-10-02] MEDS: prednisoLONE 10 MG ODT TAB PO SCH (17:25)
[2022-10-02] MEDS: Ampicillin 2 GM in Sodium Chloride 0.9% 100 ML IVPB SCH (20:47)
[2022-10-02] MEDS: Nadolol 40 MG TAB PO SCH (20:47)
[2022-10-03] MEDS: Ampicillin 2 GM in Sodium Chloride 0.9% 100 ML IVPB SCH ×6 (01:05→20:43)
[2022-10-03] MEDS: Furosemide 40 MG TAB PO SCH (08:43)
[2022-10-03] MEDS: Multivit, Therapeutic 1 TAB PO SCH (08:43)
[2022-10-03] MEDS: Rifaximin 550 MG TAB PO SCH ×2 (08:43→20:42)
[2022-10-03] MEDS: Thiamine 100 MG TAB PO SCH (08:43)
[2022-10-03] MEDS: Spironolactone 100 MG TAB PO SCH (08:43)
[2022-10-03] MEDS: Folic Acid 1 MG TAB PO SCH (08:44)
[2022-10-03] MEDS: prednisoLONE 10 MG ODT TAB PO SCH (17:23)
[2022-10-03] MEDS: Nadolol 40 MG TAB PO SCH (20:42)
[2022-10-04] MEDS: Ampicillin 2 GM in Sodium Chloride 0.9% 100 ML IVPB SCH ×6 (00:43→20:41)
[2022-10-04] MEDS ORDERED: Simethicone Chewable 80 MG TAB PO PRN (03:44)
[2022-10-04] MEDS: Multivit, Therapeutic 1 TAB PO SCH (08:37)
[2022-10-04] MEDS: Thiamine 100 MG TAB PO SCH (08:37)
[2022-10-04] MEDS: Spironolactone 100 MG TAB PO SCH (08:37)
[2022-10-04] MEDS: Furosemide 40 MG TAB PO SCH (08:37)
[2022-10-04] MEDS: Rifaximin 550 MG TAB PO SCH ×2 (08:37→20:42)
[2022-10-04] MEDS: Folic Acid 1 MG TAB PO SCH (08:38)
[2022-10-04] MEDS ORDERED: prednisoLONE 10 MG ODT TAB PO SCH ×2 (18:00)
[2022-10-04] MEDS: Nadolol 40 MG TAB PO SCH (20:42)
[2022-10-05] MEDS: Ampicillin 2 GM in Sodium Chloride 0.9% 100 ML IVPB SCH ×4 (00:10→16:06)
[2022-10-05 05:41] LABS: #Lymphocytes 0.7 thou/uL (1.20-3.40); #Monocytes 0.9 thou/uL (0.11-0.59); #Neutrophils 7.4 thou/uL (1.40-6.50); %Basophils 0.1 % (0.0-1.0); %Eosinophils 0.5 % (0.0-10.0); %Lymphocytes 7.7 % (21.0-51.0); %Monocytes 9.6 % (0.0-10.0); %Neutrophils 82.1 % (42.0-75.0); Hemoglobin 10.3 g/dL (14.0-18.0); Mean Corpuscular HGB CONC 31.5 g/dL (32.0-36.0); Mean Corpuscular Hemoglobin 38.7 pg (27.0-31.0); Mean Platelet Volume 8.2 fL (7.4-10.4); Platelet Count 65 10x3/uL (130-400); RBC Distribution Width 17.4 % (11.5-14.5); Red Blood Cell (RBC) Count 2.65 mill/uL (4.70-6.10); White Blood Cell (WBC) Count 9.1 10x3/uL (4.8-10.8)
[2022-10-05 05:48] LABS: ALT (SGPT) 64 U/L (8-55); AST (SGOT) 82 U/L (5-34); Alkaline Phosphatase 177 U/L (40-110); Anion Gap 10 mmol/L (10-20); BUN (Urea Nitrogen) 14 mg/dL (8.9-20.6); Bilirubin, Total 9.2 mg/dL (0.2-1.2); Calc. Creatinine Clearance 133 mL/min (70-130); Calcium 8.2 mg/dL (7.8-10.44); Carbon Dioxide 26 mmol/L (22-29); Chloride 96 mmol/L (98-107); Estimated GFR 126; Globulin 3.2 g/dL (2.4-3.5); Glucose 92 mg/dL (70-105); Potassium 3.5 mmol/L (3.5-5.1); Protein, Total 6.2 g/dL (6.0-8.3); Sodium 128 mmol/L (136-145)
[2022-10-05] MEDS: Folic Acid 1 MG TAB PO SCH (10:47)
[2022-10-05] MEDS: Multivit, Therapeutic 1 TAB PO SCH (10:47)
[2022-10-05] MEDS: Thiamine 100 MG TAB PO SCH (10:47)
[2022-10-05] MEDS: Furosemide 40 MG TAB PO SCH (10:47)
[2022-10-05] MEDS: Spironolactone 100 MG TAB PO SCH (10:48)
[2022-10-05] MEDS: Rifaximin 550 MG TAB PO SCH (10:48)
[2022-10-05 12:11] VITALS: BP 115/81; TEMP 97.6
== END 2022-10-05 16:00 | disposition home or self-care (01) | DRG 871 ==
LOC: ERS 23:18 → NEURO 09-29 02:26
PROVIDERS: ADMIT Student in an Organized Health Care Education/Training Program; ATTEND Hospitalist
DX: A41.81 Sepsis due to Enterococcus (principal); K65.2 Spontaneous bacterial peritonitis; K76.6 Portal hypertension; E87.1 Hypo-osmolality and hyponatremia; I85.10 Secondary esophageal varices without bleeding; K76.82 Hepatic encephalopathy; Z20.822 Contact with and (suspected) exposure to COVID-19; I10 Essential (primary) hypertension; K74.60 Unspecified cirrhosis of liver; F32.A Depression, unspecified; F41.9 Anxiety disorder, unspecified; D69.6 Thrombocytopenia, unspecified; K70.31 Alcoholic cirrhosis of liver with ascites; K70.11 Alcoholic hepatitis with ascites; D63.8 Anemia in other chronic diseases classified elsewhere; Z79.52 Long term (current) use of systemic steroids; Z79.899 Other long term (current) drug therapy
CPT/HCPCS: 36415; 70450; 71045; 74177; 80053; 80202; 80307; 81001; 82140; 82550; 82553; 83605; 84484; 85025; 85610; 85730; 86850; 86900; 86901; 87040; 87077; 87149; 87186; 93005; J0290; J0696; J3370; J3430; J3490; P9047; Q9967; U0003; U0005